=== PATIENT | female | born 1930 | race Caucasian/White ===

== ENCOUNTER 2021-06-25 11:28 | Emergency (ER) | payer MEDICARE, BC, OTHER ==
[~2021-06-25] VITALS: Ht 162.6 cm; Wt 68.0 kg
--- NOTE | 2021-06-25 11:39 | ED.ADGEN ---
Past Medical History Past Surgical History: Other Additional Past Surgical Histo: unable to obtain General Adult EDM: Chief Complaint: MECHANICAL FALL HPI: HPI: Patient is an 89-year-old female who arrives via EMS after sustaining facial injuries from a fall. Patient was reportedly in a chair when she slipped from the chair and fell onto the floor. Patient sustained a laceration to the superior and lateral aspect of her left thigh. Patient has a history of dementia and is unable to recall the events as they occurred. She is denying pain of any kind. Paramedics report that despite following she has returned to her baseline of functioning. She is awake, alert and nontoxic-appearing. She provides no history otherwise. Review of Systems: Review of Systems: Unavailable as the patient suffers from dementia Current Medications: Current Medications Medications (Trade) Dose Ordered Sig/Grupo Start Time Stop Time Status Last Admin Dose Admin Lidocaine HCl (Lidocaine 1% 20ml Vial) 20 ml 1X ONCE 06/25/21 13:30 06/25/21 13:31 DC 06/25/21 13:30 20 ML Allergies: Allergies: Allergies Coded Allergies Type Severity Reaction Last Updated Verified No Known Drug Allergies 06/25/21 No Physical Exam: PE: Constitutional: Well developed, well nourished, no acute distress, non-toxic appearance. [] HENT: Patient has a small laceration lateral to the left eyebrow. Normocephalic, bilateral external ears normal, oropharynx moist, no oral exudates, nose normal. [] Eyes: PERRLA, EOMI, conjunctiva normal, no discharge. [] Neck: Normal range of motion, no tenderness, supple, no stridor. [] Cardiovascular:Heart rate regular rhythm, no murmur [] Lungs & Thorax: Bilateral breath sounds clear to auscultation [] Abdomen: Bowel sounds normal, soft, no tenderness, no masses, no pulsatile masses. [] Skin: Warm, dry, no erythema, no rash. [] Back: No tenderness, no CVA tenderness. [] Extremities: No tenderness, no cyanosis, no clubbing, ROM intact, no edema. [] Neurologic: Alert and oriented X 3, normal motor function, normal sensory function, no focal deficits noted. [] Psychologic: Affect normal, judgement normal, mood normal. [] Current Patient Data: Vital Signs: Vital Signs Date Time Temp Pulse Resp B/P (MAP) Pulse Ox O2 Delivery O2 Flow Rate FiO2 06/25/21 11:31 98.2 82 16 141/72 (95) 97 Room Air 98.2 EKG: EKG: [] Heart Score: C/O Chest Pain: No Risk Factors: Risk Factors: DM, Current or recent (<one month) smoker, HTN, HLP, family history of CAD, obesity. Risk Scores: Score 0 - 3: 2.5% MACE over next 6 weeks - Discharge Home Score 4 - 6: 20.3% MACE over next 6 weeks - Admit for Clinical Observation Score 7 - 10: 72.7% MACE over next 6 weeks - Early Invasive Strategies Radiology/Procedures: Radiology/Procedures: [] Impression: [facility] [address] [place], [place] [id number] IMAGING REPORT Signed PATIENT: NEYDA CHUNG ACCOUNT: [id number] : 1930 LOCATION: ER AGE: 89 SEX: F EXAM STATUS: PRE ER ORD. PHYSICIAN: APRIL PALMER DO REASON: FACIAL TRAUMA PROCEDURE: CT HEAD AND MAXILLOFACIAL WO CT brain without contrast, CT C-spine without contrast, CT maxillofacial without contrast. HISTORY: Facial trauma CT brain CT scan the brain was done without contrast. A skull fracture is not identified. There is diffuse atrophy intracranially. There is decreased density in the white matter from chronic microvascular changes. There is no intracranial hemorrhage or subdural hematoma. Ventricles are normal in size. IMPRESSION: 1. Atrophy and chronic white matter changes. 2. No intracranial hemorrhage or acute finding. End impression CT FACIAL BONES: Axial CT images were obtained through the facial bones. Mandible is intact. Sinuses are clear throughout. A facial fracture is not identified. There is extensive carotid artery calcifications carotid bifurcation on the right. There is mild carotid calcification on the left. Orbits appear unremarkable. Nasal septum is in the midline. Ostiomeatal complex is clear. There is arthritis at the left temporomandibular joint with joint space narrowing and spurring. A nasal fracture is not identified. IMPRESSION: 1. Left TM joint arthritis. 2. No facial fracture noted. CT cervical spine Axial CT images were obtained to the cervical spine. Sagittal and coronal reconstructed images were reviewed. There is no acute C-spine fracture. C-spine is in normal alignment. Disc space narrowing in the lower cervical spine. There is no acute fracture. There is fusion at C4-5 and C5-6. IMPRESSION: 1. Degenerative changes in the cervical spine. 2. No acute C-spine fracture. PQRS Compliance Statement: One or more of the following individualized dose reduction techniques were utilized for this examination: 1. Automated exposure control 2. Adjustment of the mA and/or kV according to patient size 3. Use of iterative reconstruction technique Electronically signed by: Vahe Rivera MD (06/25/2021 1:20 PM) [facility] DICTATED and SIGNED BY: VAHE RIVERA MD DATE: 06/25/21 [id number] 0 Course & Med Decision Making: Course & Med Decision Making Pertinent Labs and Imaging studies reviewed. (See chart for details) The patient has continued to rest comfortably since her arrival. She has had no further changes to her medical condition and is at her functional baseline per history that accompanies her. Should she have any changes to her condition of advised the proprietor's of her residence to return her to the emergency department for further evaluation. She is otherwise been instructed to have her sutures removed in 5 days with respect to the laceration that has been repaired. [] Dragon Disclaimer: Dragon Disclaimer: This electronic medical record was generated, in whole or in part, using a voice recognition dictation system. Laceration Repair Lac Repair Indication: [] Facial laceration Procedure: The patient was laying in the supine position and after minimal debridement and irrigation of the wound, the patient was given 3 cc of lidocaine without epinephrine. Upon achieving anesthesia the wound was approximated with 3 simple interrupted sutures of 5-0 Ethilon. Bleeding was minimal and the patient tolerated the procedure very well. Total repaired wound length: 1 cm The patient tolerated the procedure very well without complications. Departure Departure Impression: Primary Impression: Facial laceration Additional Impressions: Fall from chair, initial encounter Closed head injury Disposition: 01 HOME / SELF CARE / HOMELESS Condition: STABLE Patient Instructions: Facial Laceration, Fall Prevention and Home Safety, Head Injury, Adult Additional Instructions: Suture removal in 5 days Problem Qualifiers APRIL PALMER DO Jun 25, 2021 11:39
--- NOTE | 2021-06-25 13:05 | NUR ---
At 1305 I cleaned pt. laceration on left side of forhead near the eyebrow. Notifed provider and nurse of task complition.
--- NOTE | 2021-06-25 13:22 | RAD ---
CT brain without contrast, CT C-spine without contrast, CT maxillofacial without contrast. HISTORY: Facial trauma CT brain CT scan the brain was done without contrast. A skull fracture is not identified. There is diffuse atr ophy intracranially. There is decreased density in the white matter from chronic microvascular change s. There is no intracranial hemorrhage or subdural hematoma. Ventricles are normal in size. IMPRESSION: 1. Atrophy and chronic white matter changes. 2. No intracranial hemorrhage or acute finding. End impression CT FACIAL BONES: Axial CT images were obtained through the facial bones. Mandible is intact. Sinuses are clear through out. A facial fracture is not identified. There is extensive carotid artery calcifications carotid bi furcation on the right. There is mild carotid calcification on the left. Orbits appear unremarkable. Nasal septum is in the midline. Ostiomeatal complex is clear. There is arthritis at the left temporom andibular joint with joint space narrowing and spurring. A nasal fracture is not identified. IMPRESSION: 1. Left TM joint arthritis. 2. No facial fracture noted. CT cervical spine Axial CT images were obtained to the cervical spine. Sagittal and coronal reconstructed images were r eviewed. There is no acute C-spine fracture. C-spine is in normal alignment. Disc space narrowing in the lower cervical spine. There is no acute fracture. There is fusion at C4-5 and C5-6. IMPRESSION: 1. Degenerative changes in the cervical spine. 2. No acute C-spine fracture. PQRS Compliance Statement: One or more of the following individualized dose reduction techniques were utilized for this examinat ion: 1. Automated exposure control 2. Adjustment of the mA and/or kV according to patient size 3. Use of iterative reconstruction technique Electronically signed by: Vahe Amezquita MD (06/25/2021 1:20 PM) [facility]
[2021-06-25] MEDS ORDERED: LIDOCAINE 1% Multi-Dose 20 ML VIAL. INJ ONE (13:30)
[2021-06-25 14:19] VITALS: BP 176/77
== END 2021-06-25 15:09 | disposition home or self-care (01) ==
LOC: ER 11:28
DX: S01.112A Laceration without foreign body of left eyelid and periocular area, initial encounter (principal); W07.XXXA Fall from chair, initial encounter; Y93.89 Activity, other specified; Y92.89 Other specified places as the place of occurrence of the external cause; Y99.8 Other external cause status
CPT/HCPCS: 12011; 70450; 70486; 72125; 99285; J3490